=== PATIENT | female | born 1960 | race Caucasian/White ===

== ENCOUNTER 2020-09-20 15:56 | Emergency (ER) | payer OTHER | END 2020-09-20 16:50 | disposition home or self-care (01) | LOC: JVIRT 15:56 | DX: Z03.818 Encounter for observation for suspected exposure to other biological agents ruled out (principal) | CPT/HCPCS: C9803; Q3014-GT; U0003 ==

== ENCOUNTER 2020-09-24 12:44 | Emergency (ER) | payer OTHER | END 2020-09-24 13:21 | disposition home or self-care (01) | LOC: JVIRT 12:44 | DX: Z03.818 Encounter for observation for suspected exposure to other biological agents ruled out (principal) | CPT/HCPCS: C9803; Q3014-GT; U0003 ==

== ENCOUNTER 2020-10-30 11:29 | Emergency (ER) | payer OTHER ==
[2020-10-30 11:49] VITALS: TEMP 99; BMI 33.6
[2020-10-30] MEDS ORDERED: LIDOCAINE 5% TOPICAL PATCH TP ONE (12:06)
[2020-10-30] MEDS ORDERED: LIDOCAINE 5% TOPICAL PATCH ONE (12:18)
[2020-10-30 12:49] VITALS: BP 154/97; PULSE 84
[2020-10-30] MEDS ORDERED: LIDOCAINE PATCH REMOVAL MC SCH (22:00)
== END 2020-10-30 12:50 | disposition home or self-care (01) ==
LOC: FER 11:29
DX: M25.511 Pain in right shoulder (principal)
CPT/HCPCS: 73030-TC-RT-FY; 99283-25

== ENCOUNTER 2021-10-11 09:34 | Emergency (ER) | payer OTHER ==
[2021-10-11 09:43] VITALS: BP 153/99; PULSE 82; TEMP 99.3; BMI 33.6
[2021-10-11] MEDS ORDERED: IBUPROFEN 600 MG TABLET (FP) PO ONE ×2 (10:02→10:12)
== END 2021-10-11 10:47 | disposition home or self-care (01) ==
LOC: FER 09:34
DX: S69.92XA Unspecified injury of left wrist, hand and finger(s), initial encounter (principal); X50.0XXA Overexertion from strenuous movement or load, initial encounter
CPT/HCPCS: 73110-TC-LT-FY; 99283-25

== ENCOUNTER 2022-06-15 18:58 | Emergency (ER) | payer OTHER ==
[2022-06-15 19:23] VITALS: BP 150/99; PULSE 77; RESP 18; TEMP 99; BMI 39.5
[2022-06-15] MEDS ORDERED: KETOROLAC TROMETHAMINE 30 MG/1 ML VIAL IM ONE (19:23)
[2022-06-15] MEDS ORDERED: KETOROLAC TROMETHAMINE 30 MG/1 ML VIAL ONE (19:27)
[2022-06-15] MEDS ORDERED: CEPHALEXIN MONOHYDRATE 500 MG CAPSULE (UD) PO ONE (20:38)
[2022-06-15] MEDS ORDERED: CEPHALEXIN MONOHYDRATE 500 MG CAPSULE (UD) ONE (20:41)
== END 2022-06-15 20:52 | disposition home or self-care (01) ==
LOC: FER 18:58
PROC: 3E0233Z Introduction of Anti-inflammatory into Muscle, Percutaneous Approach (ICD-10-PCS; principal; 2022-06-15)
DX: S60.10XA Contusion of unspecified finger with damage to nail, initial encounter (principal); W19.XXXA Unspecified fall, initial encounter; Y92.9 Unspecified place or not applicable
CPT/HCPCS: 73110-TC-RT-FY; 73130-TC-RT-FY; 99284-25

== ENCOUNTER 2022-09-12 06:18 | Day surgery (SDC) | payer OTHER ==
[2022-09-07 16:17] VITALS: BMI 35.7
[2022-09-12 06:43] VITALS: RESP 18
[2022-09-12] MEDS ORDERED: LIDOCAINE HCL 2% 100 MG/5 ML DISP.SYRIN ONE (07:11)
[2022-09-12] MEDS ORDERED: PROPOFOL 40 ML ONE ×2 (07:12→08:04)
[2022-09-12] MEDS ORDERED: MIDAZOLAM HCL 2 MG/2 ML SINGLE DOSE VIAL ONE (07:12)
[2022-09-12] MEDS ORDERED: LIDOCAINE HCL 2% (20ML MULTI-DOSE VIAL) ONE (07:17)
[2022-09-12] MEDS ORDERED: GUM MASTIC/STORAX/MSAL/ALCOHOL 1 DRP DROPSBTL MC ONE (07:20)
[2022-09-12] MEDS ORDERED: DEXAMETHASONE SOD PHOSPHATE 4 MG/1 ML VIAL ONE (08:00)
[2022-09-12] MEDS ORDERED: ceFAZolin SODIUM 1 GM VIAL ONE (08:00)
[2022-09-12] MEDS ORDERED: KETOROLAC TROMETHAMINE 30 MG/1 ML VIAL ONE (08:00)
[2022-09-12] MEDS ORDERED: ONDANSETRON 4 MG/2 ML VIAL ONE (08:00)
[2022-09-12 08:32] VITALS: TEMP 97.8
[2022-09-12 09:20] VITALS: BP 110/64; PULSE 74
== END 2022-09-12 09:15 | disposition home or self-care (01) ==
LOC: FASU 06:18
PROVIDERS: ATTEND Orthopaedic Surgery Hand Surgery
PROC: 0LN70ZZ Release Right Hand Tendon, Open Approach (ICD-10-PCS; principal; 2022-09-12 08:06)
DX: M65.331 Trigger finger, right middle finger (principal)

== ENCOUNTER 2024-08-13 19:54 | Emergency (ER) | payer OTHER ==
[2024-08-13 20:23] VITALS: BP 110/67; PULSE 87; RESP 15; TEMP 97.9; BMI 32.1
[2024-08-13 20:41] LABS: BASO % 0.2 % (0-2.0); HEMATOCRIT 35.3 % (32.4-45.2); HEMOGLOBIN 11.9 GM/dL (10.7-15.3); LYMPH % 19.8 % (8-40); MCH 31.7 pg (25.7-33.7); MCHC 33.9 g/dl (32.0-36.0); MEAN CELL VOLUME 93.6 fl (80-96); MEAN PLT VOLUME 7.7 fl (7.5-11.1); MONO % 8.8 % (3.8-10.2); NEUT % 70.2 % (42.8-82.8); PLATELET COUNT 251 10^3/uL (134-434); RBC 3.77 M/mm3 (3.60-5.2); RDW 14.5 % (11.6-15.6); WHITE BLOOD COUNT 10.2 K/mm3 (4.0-10.0)
[2024-08-13 20:50] LABS: INR 0.95 (0.83-1.09); PROTHROMBIN TIME (PATIENT) 10.8 SEC (9.7-13.0)
[2024-08-13 20:52] LABS: ACTIVATED PTT 27.1 SECONDS (25.2-36.5)
[2024-08-13 21:03] LABS: ALBUMIN 3.1 g/dl (3.4-5.0); BLOOD UREA NITROGEN 20.5 mg/dL (7-18); CALCIUM 8.2 mg/dL (8.5-10.1)
[2024-08-13 21:06] LABS: CREATININE 0.9 mg/dL (0.55-1.3)
[2024-08-13 21:09] LABS: BILIRUBIN,TOTAL 0.2 mg/dL (0.2-1); TOT PROT 5.5 g/dl (6.4-8.2)
== END 2024-08-14 00:16 | disposition home or self-care (01) ==
LOC: JER 19:54
DX: R55 Syncope and collapse (principal); R42 Dizziness and giddiness; R61 Generalized hyperhidrosis; R45.1 Restlessness and agitation
CPT/HCPCS: 36415; 70450-TC; 71045-TC-FY; 72125-TC; 80053; 84484; 85025; 85610; 85730; 93005; 93010; 99285-25